=== PATIENT | male | born 1975 | race Caucasian/White ===

== ENCOUNTER 2019-10-04 08:12 | Outpatient (REF) | payer OTHER, SELFPAY ==
[2019-10-04 11:08] LABS: Estmated Average Glucose 126
[2019-10-04 13:52] LABS: Chol HDL Ratio 4.86 mg/dL (1.0-5.00); Cholesterol 248 mg/dL (0-200); Glucose 90 mg/dL (65-115); HDL Cholesterol 51 mg/dL (60-100); LDL Cholesterol Calculated 182 mg/dL (50-129); LDL HDL Ratio 3.57 RATIO (0.00-3.22); Triglycerides 76 mg/dL (0-150)
== END 2019-10-04 08:13 | disposition home or self-care (01) ==
LOC: LAB 08:12
PROVIDERS: Family Provider Family Medicine; Visit Provider Dermatology
DX: Z01.89 Encounter for other specified special examinations (principal)
CPT/HCPCS: 80061; 82947; 83036

== ENCOUNTER 2021-05-11 12:00 | Outpatient (CLI) | payer OTHER, SELFPAY | END 2021-05-11 12:01 | disposition home or self-care (01) | LOC: SLEEP 05-12 14:12 | PROVIDERS: Family Provider Family Medicine; PCP Internal Medicine; Visit Provider Internal Medicine | DX: G47.10 Hypersomnia, unspecified (principal); R06.83 Snoring; R53.83 Other fatigue | CPT/HCPCS: G0399 ==